=== PATIENT | female | born 1960 | race Caucasian/White ===

== ENCOUNTER 2018-08-29 12:38 | Emergency (ER) | payer OTHER ==
[2018-08-29 13:10] VITALS: BP 157/64; PULSE 95; TEMP 99.1; BMI 25.8
--- NOTE | 2018-08-29 14:12 | PDOC ---
History of Present Illness - General Chief Complaint: Injury Stated Complaint: PAIN,KNEE Time Seen by Provider: 08/29/18 14:02 - History of Present Illness Initial Comments: 08/29/18 14:07 58-year-old female with a past medical history significant for anxiety, she takes Klonopin presents for evaluation of left knee pain 3 days. She states she was playing with her daughter twisted her left knee and now has pain. She points to the lateral aspect of the left knee as the area of her discomfort. She does have a history of a prior meniscal tear of the left knee which was left alone in treated nonoperatively Past History - Past Medical History Allergies/Adverse Reactions: Allergies Allergy/AdvReac Type Severity Reaction Status Date / Time amoxicillin trihydrate Allergy Rash Verified 08/29/18 13:10 [From Augmentin] codeine [Codeine] Allergy Vomiting Verified 08/29/18 13:10 potassium clavulanate Allergy Rash Verified 08/29/18 13:10 [From Augmentin] ketorolac tromethamine AdvReac Verified 08/29/18 13:10 [From Toradol] TORODOL AdvReac Uncoded 08/29/18 13:10 Home Medications: Ambulatory Orders clonazePAM [Klonopin -] 1 mg PO BID #0 tablet 11/04/11 Eszopiclone [Lunesta] 3 mg PO DAILY 08/31/15 Fluticasone Prop 0.05% Nasal [Flonase -] 1 - 2 spray NS DAILY #1 spray.pump 03/10 Guaifenesin [Robitussin -] 100 mg PO Q4H PRN #210 ml 08/31/15 Montelukast Na [Singulair -] 10 mg PO DAILY 08/31/15 Pseudoephedrine HCl [Sudafed] 30 mg PO Q6H PRN #30 tablet 08/31/15 Anemia: No Asthma: No Cancer: No Cardiac Disorders: No CVA: No COPD: No CHF: No Dementia: No Diabetes: No GI Disorders: No Disorders: No HTN: No Hypercholesterolemia: No Liver Disease: No Psychiatric Problems: Yes (anxiety) Seizures: No Thyroid Disease: No - Surgical History Abdominal Surgery: No Appendectomy: No Cardiac Surgery: No Cholecystectomy: No Lung Surgery: No Neurologic Surgery: No Orthopedic Surgery: Yes ((L) WRIST 2008) - Suicide/Smoking/Psychosocial Hx Smoking Status: Yes Smoking History: Current every day smoker Have you smoked in the past 12 months: Yes Number of Cigarettes Smoked Daily: 20 Information on smoking cessation initiated: No 'Breaking Loose' booklet given: 03/23/14 Hx Alcohol Use: No Drug/Substance Use Hx: No Substance Use Type: None Hx Substance Use Treatment: No Review of Systems - Review of Systems Musculoskeletal: Yes: Joint Pain *Physical Exam - Vital Signs Last Vital Signs Temp Pulse Resp BP Pulse Ox 99.1 F 95 H 21 H 157/64 98 08/29/18 13:07 08/29/18 13:07 08/29/18 13:07 08/29/18 13:07 08/29/18 13:07 - Physical Exam Comments: 08/29/18 14:09 Left knee skin color and temperature are normal range of motion 0-90 with pain at terminal flexion. Extensor mechanism is intact. This tenderness about the posterior lateral joint line mild tenderness posterior medial joint line no evidence of instability thigh and calf are soft and nontender she is neurovascularly intact. Moderate Sedation - Procedure Monitoring Vital Signs: Procedure Monitoring Vital Signs Temperature 99.1 F 08/29/18 13:07 Pulse Rate 95 H 08/29/18 13:07 Respiratory Rate 21 H 08/29/18 13:07 Blood Pressure 157/64 08/29/18 13:07 O2 Sat by Pulse Oximetry (%) 98 08/29/18 13:07 *DC/Admit/Observation/Transfer Diagnosis at time of Disposition: Strain of left knee - Discharge Dispostion Disposition: HOME Condition at time of disposition: Stable Decision to Admit order: No - Referrals Referrals: Victoriano Pineda MD [Primary Care Provider] - Feliz Fitch MD [Staff Physician] - - Patient Instructions Printed Discharge Instructions: Meniscal Tear Additional Instructions: He may weight-bear as tolerated with use of crutches Tylenol as directed for pain follow-up with orthopedics in 2-3 days for further evaluation and treatment options. - Post Discharge Activity
== END 2018-08-29 14:45 | disposition home or self-care (01) ==
LOC: JERFT 12:38
DX: S83.8X2A Sprain of other specified parts of left knee, initial encounter (principal); X50.1XXA Overexertion from prolonged static or awkward postures, initial encounter; Y93.89 Activity, other specified; Y92.89 Other specified places as the place of occurrence of the external cause; Y99.8 Other external cause status; F41.9 Anxiety disorder, unspecified
CPT/HCPCS: 99281-25

== ENCOUNTER 2019-09-12 20:29 | Emergency (ER) | payer OTHER ==
--- NOTE | 2019-09-12 20:46 | PDOC ---
Rapid Medical Evaluation Time Seen by Provider: 09/12/19 20:42 Medical Evaluation: Allergies Allergy/AdvReac Type Severity Reaction Status Date / Time amoxicillin trihydrate Allergy Rash Verified 08/29/18 13:10 [From Augmentin] codeine [Codeine] Allergy Vomiting Verified 08/29/18 13:10 potassium clavulanate Allergy Rash Verified 08/29/18 13:10 [From Augmentin] ketorolac tromethamine AdvReac Verified 08/29/18 13:10 [From Toradol] TORODOL AdvReac Uncoded 08/29/18 13:10 09/12/19 20:43 I have performed a brief in-person evaluation of this patient. The patient presents with a chief complaint of: Dysuria w/ rust color urine x 2 days. No flank pain, n/v/f/c. No h/o renal stone or any other pmhx per pt. Pertinent physical exam findings:Tachy but afebrile and well chelsey I have ordered the following:ua/cx The patient will proceed to the ED for further evaluation. Discharge Disposition - Diagnosis Dysuria - Referrals - Patient Instructions - Post Discharge Activity
[2019-09-12 20:47] VITALS: BMI 27.1
--- NOTE | 2019-09-12 21:44 | PDOC ---
History of Present Illness - General Chief Complaint: Urinary Problem Stated Complaint: HEMATURIA Time Seen by Provider: 09/12/19 20:42 - History of Present Illness Initial Comments: 59 year old female with PMH of anxiety presenting with urinary burning for the past day. States that she noticed some pink tinged urine and mild suprapubic pain when urinating that has been progressively worsening. She denies any fevers , chills, nausea, vomiting, chest pain, or diarrhea. 09/12/19 22:17 Past History - Past Medical History Allergies/Adverse Reactions: Allergies Allergy/AdvReac Type Severity Reaction Status Date / Time amoxicillin trihydrate Allergy Rash Verified 09/12/19 20:48 [From Augmentin] codeine [Codeine] Allergy Vomiting Verified 09/12/19 20:48 potassium clavulanate Allergy Rash Verified 09/12/19 20:48 [From Augmentin] ketorolac tromethamine AdvReac Verified 09/12/19 20:48 [From Toradol] TORODOL AdvReac Uncoded 09/12/19 20:48 Home Medications: Ambulatory Orders clonazePAM [Klonopin -] 1 mg PO BID #0 tablet 11/04/11 Eszopiclone [Lunesta] 3 mg PO DAILY 08/31/15 Fluticasone Prop 0.05% Nasal [Flonase -] 1 - 2 spray NS DAILY #1 spray.pump 03/10 Guaifenesin [Robitussin -] 100 mg PO Q4H PRN #210 ml 08/31/15 Montelukast Na [Singulair -] 10 mg PO DAILY 08/31/15 Pseudoephedrine HCl [Sudafed] 30 mg PO Q6H PRN #30 tablet 08/31/15 Nitrofurantoin Monohyd/M-Cryst [Macrobid -] 100 mg PO BID #14 capsule 09/12/19 Anemia: No Asthma: No Cancer: No Cardiac Disorders: No CVA: No COPD: No CHF: No Dementia: No Diabetes: No GI Disorders: No Disorders: No HTN: No Hypercholesterolemia: No Liver Disease: No Psychiatric Problems: Yes (anxiety) Seizures: No Thyroid Disease: No - Surgical History Abdominal Surgery: No Appendectomy: No Cardiac Surgery: No Cholecystectomy: No Lung Surgery: No Neurologic Surgery: No Orthopedic Surgery: Yes ((L) WRIST 2008) - Immunization History Immunization Up to Date: Yes - Psycho Social/Smoking Cessation Hx Smoking Status: Yes Smoking History: Current every day smoker Have you smoked in the past 12 months: Yes Number of Cigarettes Smoked Daily: 15 Information on smoking cessation initiated: Yes 'Breaking Loose' booklet given: 03/23/14 Hx Alcohol Use: No Drug/Substance Use Hx: No Substance Use Type: None Hx Substance Use Treatment: No Review of Systems - Review of Systems Constitutional: No: Chills, Diaphoresis, Fever, Loss of Appetite HEENTM: No: Eye Pain, Blurred Vision, Tearing Respiratory: No: Cough, Orthopnea, Shortness of Breath Cardiac (ROS): No: Chest Pain, Edema, Irregular Heart Rate ABD/GI: No: Diarrhea, Nausea, Vomiting : Yes: Dysuria, Frequency, Hematuria, Pain, Urgency. No: Flank Pain Musculoskeletal: No: Back Pain, Gout, Joint Pain, Joint Swelling Integumentary: No: Bruising, Change in Color, Lesions Neurological: No: Headache, Numbness, Paresthesia Psychiatric: Yes: Anxiety. No: Depression, Frequent Crying, Stressors Endocrine: No: Excessive Sweating, Flushing Hematologic/Lymphatic: No: Anemia, Blood Clots, Easy Bleeding, Bleeding Diathesis *Physical Exam - Vital Signs Last Vital Signs Temp Pulse Resp BP Pulse Ox 97.8 F 113 H 20 144/75 97 09/12/19 20:41 09/12/19 20:41 09/12/19 20:41 09/12/19 20:41 09/12/19 20:41 - Physical Exam General Appearance: Yes: Nourished, Appropriately Dressed. No: Apparent Distress HEENT: positive: EOMI, BASSAM, Normal ENT Inspection, Normal Voice Neck: positive: Trachea midline, Normal Thyroid, Supple. negative: Tender, Rigid Respiratory/Chest: positive: Lungs Clear, Normal Breath Sounds. negative: Chest Tender, Respiratory Distress, Accessory Muscle Use Cardiovascular: positive: Regular Rhythm, Regular Rate Gastrointestinal/Abdominal: positive: Normal Bowel Sounds, Flat, Soft. negative : Tender Lymphatic: negative: Adenopathy, Tenderness Musculoskeletal: positive: Normal Inspection. negative: Decreased Range of Motion Extremity: positive: Normal Capillary Refill, Normal Inspection, Normal Range of Motion. 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 Deneis flank pain or any colicky pain. Deneis fevers or chllls to sugges tmore systemic infection,. UA positive for WBCs, leuk esterase, and bacteria. Will DC with keflex for UTI. 09/12/19 22:22 Discharge - Discharge Information Problems reviewed: Yes Clinical Impression/Diagnosis: Dysuria UTI (urinary tract infection) Qualifiers: Urinary tract infection type: acute cystitis Hematuria presence: with hematuria Qualified Code(s): N30.01 - Acute cystitis with hematuria Condition: Stable Disposition: HOME - Admission No - Additional Discharge Information Prescriptions: Nitrofurantoin Monohyd/M-Cryst [Macrobid -] 100 mg PO BID #14 capsule - Follow up/Referral Referrals: Victoriano Pineda MD [Primary Care Provider] - - Patient Discharge Instructions Patient Printed Discharge Instructions: DI for Urinary Tract Infection (UTI) Additional Instructions: You have an infection of your urine. Please take your antibiotics twice a day for 7 days. Please see your doctor in one week. Please return to the ED if you have new or worsening symptoms. - Post Discharge Activity
--- NOTE | 2019-09-12 21:47 | PDOC ---
Attending Attestation - Resident Resident Name: Kiersten Ruizchelojose carlos - ED Attending Attestation I have performed the following: I have examined & evaluated the patient, The case was reviewed & discussed with the resident, I agree w/resident's findings & plan - HPI HPI: 09/12/19 22:53 see resident hpi - Physicial Exam PE: 09/12/19 22:54 agree with resident exam - Medical Decision Making 09/12/19 22:54 59-year-old female with dysuria, urine consistent with urinary tract infection DC on Macrobid
[2019-09-12 22:09] LABS: EPI CELLS 0.4 /HPF (0-5/HPF); HYALINE CASTS 9 /lpf (0-8); URINE APPEARANCE CLOUDY; URINE BILIRUBIN NEGATIVE (NEGATIVE); URINE COLOR RED; URINE GLUCOSE (UA) NEGATIVE (NEGATIVE); URINE KETONE NEGATIVE (NEGATIVE); URINE LEUK ESTERASE 2+ (NEGATIVE); URINE NITRITE NEGATIVE (NEGATIVE); URINE PROTEIN 2+ (NEGATIVE); URINE RBC 9 /hpf (0-4); URINE UROBILINOGEN 0.2 mg/dL (0.2-1.0); URINE WBC 51 /hpf (0-5)
[2019-09-12] MEDS ORDERED: PHENAZOPYRIDINE HCL 100 MG TABLET (FP) ONE ×2 (22:37→22:39)
[2019-09-12] MEDS ORDERED: PHENAZOPYRIDINE HCL 100 MG TABLET (FP) PO ONE (22:38)
[2019-09-12] MEDS ORDERED: NITROFURANTOIN MACROCRYSTAL 50 MG CAPSULE (FP) ONE (22:38)
[2019-09-12] MEDS ORDERED: NITROFURANTOIN MACROCRYSTAL 50 MG CAPSULE (FP) PO SCH (22:45)
[2019-09-12 23:17] VITALS: BP 106/62; PULSE 110; TEMP 97.2
== END 2019-09-12 22:45 | disposition home or self-care (01) ==
LOC: JERFT 20:29 → JER 20:29
DX: N30.01 Acute cystitis with hematuria (principal); F41.9 Anxiety disorder, unspecified; Z88.8 Allergy status to other drugs, medicaments and biological substances; Z88.0 Allergy status to penicillin; Z88.6 Allergy status to analgesic agent
CPT/HCPCS: 81003; 87086; 87186; 99283-25

== ENCOUNTER 2019-09-28 13:04 | Emergency (ER) | payer OTHER ==
[2019-09-28 13:15] VITALS: BP 118/75; PULSE 84; TEMP 98.4; BMI 27.1
--- NOTE | 2019-09-28 13:56 | PDOC ---
History of Present Illness - General Chief Complaint: Weakness Stated Complaint: TIRED AND WEAK JUST GOT OVER UTI Time Seen by Provider: 09/28/19 13:28 - History of Present Illness Initial Comments: 09/28/19 15:58 Chief complaint: Generalized weakness and fatigue HPI: Treated for UTI last week with Macrobid, culture grew E. coli sensitive to the medication, symptoms resolved. Now complaining only of generalized weakness and fatigue. Review of systems: No fever/chills, headache, URI symptoms, sore throat, cough, chest pain, shortness of breath, abdominal pain, nausea, vomiting, diarrhea, visual or focal neurologic symptoms, unsteadiness of gait. Remainder of systems reviewed and negative Past medical history: Healthy female, remainder of medical history noncontributory Social history: Admits that her symptoms were related to sexual intercourse and dryness in the vaginal area. No tobacco or alcohol. No drugs. Admits that she feels overworked due to caring for her and her grandchildren and that she feels she has been overextending herself for the past few weeks in this regard. Family history noncontributory Physical exam: Alert and oriented well-developed well-nourished no acute distress cheerful and cooperative Afebrile, vital signs normal ENT clear Neck supple without bruit mass or nodes Chest clear CV regular without murmur rub or gallop Abdomen benign Neurological intact Impression: Status post UTI, urinalysis now clear, symptoms resolved. Generalized weakness and fatigue most likely due to social factors Plan: Reassure, recommended that she see embryology teacher for vaginal dryness/ hormone withdrawal symptoms, follow-up primary physician. Fully ambulatory, in no distress and cheerful at departure to follow-up as directed Past History - Past Medical History Allergies/Adverse Reactions: Allergies Allergy/AdvReac Type Severity Reaction Status Date / Time codeine [Codeine] Allergy Vomiting Verified 09/28/19 13:06 ketorolac tromethamine AdvReac Verified 09/28/19 13:06 [From Toradol] TORODOL AdvReac Uncoded 09/28/19 13:06 Home Medications: Ambulatory Orders clonazePAM [Klonopin -] 1 mg PO BID #0 tablet 11/04/11 Anemia: No Asthma: No Cancer: No Cardiac Disorders: No CVA: No COPD: No CHF: No Dementia: No Diabetes: No GI Disorders: No Disorders: No HTN: No Hypercholesterolemia: No Liver Disease: No Psychiatric Problems: Yes (anxiety) Seizures: No Thyroid Disease: No Other medical history: UTI - Surgical History Abdominal Surgery: No Appendectomy: No Cardiac Surgery: No Cholecystectomy: No Lung Surgery: No Neurologic Surgery: No Orthopedic Surgery: Yes ((L) WRIST 2008) - Immunization History Immunization Up to Date: Yes - Psycho Social/Smoking Cessation Hx Smoking Status: Yes Smoking History: Current every day smoker Have you smoked in the past 12 months: Yes Number of Cigarettes Smoked Daily: 15 Information on smoking cessation initiated: Yes 'Breaking Loose' booklet given: 03/23/14 Hx Alcohol Use: No Drug/Substance Use Hx: No Substance Use Type: None Hx Substance Use Treatment: No *Physical Exam - Vital Signs Last Vital Signs Temp Pulse Resp BP Pulse Ox 98.4 F 84 16 118/75 98 09/28/19 13:05 09/28/19 13:05 09/28/19 13:05 09/28/19 13:05 09/28/19 13:05 Discharge - Discharge Information Problems reviewed: Yes Clinical Impression/Diagnosis: Post-infection fatigue Condition: Stable Disposition: HOME - Admission No - Follow up/Referral - Patient Discharge Instructions Patient Printed Discharge Instructions: DI for Urinary Tract Infection (UTI) - Post Discharge Activity
== END 2019-09-28 14:47 | disposition home or self-care (01) ==
LOC: FER 13:04
DX: R53.83 Other fatigue (principal); F41.9 Anxiety disorder, unspecified; F17.210 Nicotine dependence, cigarettes, uncomplicated; Z88.5 Allergy status to narcotic agent; Z88.6 Allergy status to analgesic agent; Z87.440 Personal history of urinary (tract) infections
CPT/HCPCS: 81003; 87086; 99281-25